=== PATIENT | female | born 1960 | race Caucasian/White ===

== ENCOUNTER 2017-05-02 19:47 | Inpatient (IN) | payer MEDICAID, OTHER ==
[~2017-05-02] VITALS: Ht 170.2 cm; Wt 78.9 kg
[2017-05-02 20:49] LABS: BASOPHILS % (AUTO) 1.1 % (0.0-2.0); EOSINOPHILS % (AUTO) 2.5 % (1.0-6.0); HEMATOCRIT 41.1 % (36-46); HEMOGLOBIN 14.2 g/dL (12.0-16.0); LYMPHOCYTES # (AUTO) 2.7 K/uL (1.0-4.8); LYMPHOCYTES % (AUTO) 43.6 % (22.0-44.0); MEAN CORPUSCULAR HEMOGLOBIN 33.3 pg (26.0-34.0); MEAN CORPUSCULAR HGB CONC 34.7 G/dL (31.0-37.0); MEAN CORPUSCULAR VOLUME 96 fL (80-100); MONOCYTES # (AUTO) 0.3 K/uL (0.1-1.0); MONOCYTES % (AUTO) 5.3 % (2.0-9.0); NEUTROPHILS % (AUTO) 47.5 % (40.0-70.0); PLATELET COUNT (AUTO) 170 K/uL (150-450); RED BLOOD CELL COUNT(AUTO) 4.28 MIL/uL (4.00-5.20); RED CELL DISTRIBUTION WIDTH 15.3 % (11.5-14.5); WHITE BLOOD COUNT (AUTO) 6.3 K/uL (4.5-11.0)
[2017-05-02 21:11] LABS: ANION GAP 10 mmol/L (8-16); CALCIUM, TOTAL 9.1 mg/dL (8.8-10.5); CARBON DIOXIDE 26 mmol/L (22-29); CHLORIDE 104 mmol/L (98-107); CREATININE 0.81 mg/dL (0.60-1.30); GLOMERULAR FILTR. RATE CALC > 60 mL/min (>60); POTASSIUM 3.1 mmol/L (3.5-5.1); SODIUM SERUM 140 mmol/L (136-145); UREA NITROGEN, BLOOD 13 mg/dL (7-18)
[2017-05-02 21:25] LABS: ALANINE AMINOTRANSFERASE 22 U/L (12-78); ASPARTATE AMINOTRANSFERASE 14 U/L (15-37); BILIRUBIN,TOTAL 0.5 mg/dL (0.1-1.0); THYROID STIMULATING HORMONE 1.78 uIU/mL (0.36-3.74); TOTAL PROTEIN, SERUM 7.4 g/dL (6.4-8.2)
[2017-05-02 21:38] LABS: ACETAMINOPHEN < 3 mcg/mL (10-30)
[2017-05-02] MEDS ORDERED: LORazepam 2 MG TABLET PO PRN (22:30)
[2017-05-02] MEDS ORDERED: ZOLPIDEM TARTRATE 10 MG TABLET PO PRN (22:30)
[2017-05-02] MEDS ORDERED: HALOPERIDOL 5 MG TABLET PO PRN (22:30)
[2017-05-02 22:38] LABS: CHOL/HDL RATIO 3.9 (3.9-5.7)
[2017-05-03] MEDS ORDERED: SODIUM CHLORIDE 0.9% 1,000 ML IV ONE ×2 (02:00→03:45)
[2017-05-03] MEDS ORDERED: ACETAMINOPHEN 500 MG TABLET PO ONE (02:45)
[2017-05-03] MEDS ORDERED: ONDANSETRON HCL 4 MG/2 ML VIAL IVP ONE (02:45)
[2017-05-03 02:52] LABS: APPEARANCE,URINE CLEAR (CLEAR); GLUCOSE, URINE (UA) NEGATIVE (NEGATIVE); KETONES,URINE NEGATIVE (NEGATIVE); LEUKOCYTE ESTERASE ,URINE NEGATIVE (NEGATIVE); OCCULT BLOOD,URINE NEGATIVE (NEGATIVE); PROTEIN,URINE NEGATIVE (NEGATIVE)
[2017-05-03 02:56] LABS: ADD UA MICROSCOPIC NO
[2017-05-03 05:11] LABS: ANION GAP 8 mmol/L (8-16); CALCIUM, TOTAL 8.1 mg/dL (8.8-10.5); CARBON DIOXIDE 25 mmol/L (22-29); CHLORIDE 110 mmol/L (98-107); CREATININE 0.81 mg/dL (0.60-1.30); GLOMERULAR FILTR. RATE CALC > 60 mL/min (>60); POTASSIUM 3.5 mmol/L (3.5-5.1); SODIUM SERUM 143 mmol/L (136-145); UREA NITROGEN, BLOOD 10 mg/dL (7-18)
[2017-05-03 05:17] LABS: ALANINE AMINOTRANSFERASE 18 U/L (12-78); ASPARTATE AMINOTRANSFERASE 12 U/L (15-37); BILIRUBIN,TOTAL 0.3 mg/dL (0.1-1.0); TOTAL PROTEIN, SERUM 5.7 g/dL (6.4-8.2)
[2017-05-03 05:25] LABS: SALICYLATE 5.3 mg/dL (2.8-20.0)
[2017-05-03 11:01] VITALS: BP 106/52
[2017-05-03] MEDS: DiphenhydrAMINE HCL 25 MG CAPSULE PO SCH (20:54)
[2017-05-03 20:56] VITALS: BP 115/68
[2017-05-03] MEDS: NICOTINE 14 MG/24 HOUR PATCH TD SCH (21:02)
[2017-05-03 22:00] VITALS: BP 108/60
[2017-05-03 23:03] VITALS: BP 110/68
[2017-05-04 00:03] VITALS: BP 107/67
[2017-05-04 04:12] VITALS: BP 105/62
[2017-05-04 08:21] VITALS: BP 124/73
[2017-05-04] MEDS: NICOTINE 14 MG/24 HOUR PATCH TD SCH (08:59)
[2017-05-04 12:00] VITALS: BP 110/78
[2017-05-04] MEDS ORDERED: ACETAMINOPHEN 325 MG TABLET PO PRN (13:45)
[2017-05-04] MEDS: IBUPROFEN 400 MG TABLET PO PRN (13:55)
[2017-05-04 16:03] VITALS: BP 111/65
[2017-05-04 20:06] VITALS: BP 120/76
[2017-05-04] MEDS: DiphenhydrAMINE HCL 25 MG CAPSULE PO SCH (20:07)
[2017-05-05 00:50] VITALS: BP 140/90
[2017-05-05] MEDS: IBUPROFEN 400 MG TABLET PO PRN (00:53)
[2017-05-05 08:01] VITALS: BP 114/73
[2017-05-05] MEDS: NICOTINE 14 MG/24 HOUR PATCH TD SCH (08:49)
== END 2017-05-05 13:20 | disposition home or self-care (01) | DRG 751 ==
LOC: EMS 19:49 → AHU 05-03 10:45 → B3A 05-03 20:02 → B2S 05-03 21:28
PROVIDERS: ADMIT Psychiatry & Neurology Psychiatry; ATTEND Psychiatry & Neurology Child & Adolescent Psychiatry
DX: F33.2 Major depressive disorder, recurrent severe without psychotic features (principal); R45.851 Suicidal ideations; F43.10 Post-traumatic stress disorder, unspecified; Y90.6 Blood alcohol level of 120-199 mg/100 ml; E78.5 Hyperlipidemia, unspecified; F10.10 Alcohol abuse, uncomplicated; F17.210 Nicotine dependence, cigarettes, uncomplicated; Z88.6 Allergy status to analgesic agent; Z88.0 Allergy status to penicillin; Z82.49 Family history of ischemic heart disease and other diseases of the circulatory system; Z71.41 Alcohol abuse counseling and surveillance of alcoholic
CPT/HCPCS: 84443; 87081; 93005; 96361; 96374; 99285; G0480; G0481; J2405; J7030